=== PATIENT | female | born 1940 | race Asian ===

== ENCOUNTER 2017-06-05 12:20 | Inpatient (IN) | payer MEDICARE, OTHER ==
[~2017-06-05] VITALS: Ht 162.6 cm; Wt 49.0 kg
[2017-06-05 15:13] LABS: HEMATOCRIT. 34.7 % (36.0-48.0); HEMOGLOBIN. 11.8 g/dL (12.0-16.0); MEAN CORPUSCULAR HEMOGLOBIN 29.7 pg (28.0-32.0); MEAN CORPUSCULAR VOLUME 87.4 fL (81.0-99.0); MEAN PLATELET VOLUME 9.7 fl (7.4-10.4); PLATELET 242 x1000/uL (130-400); RED BLOOD CELL COUNT 3.97 mill/uL (4.2-5.4); RED CELL DISTRIBUTION WIDTH 13.3 % (11.6-14.6)
[2017-06-05 15:17] LABS: CHLORIDE 99 mEq/L (98-107)
[2017-06-05 15:20] LABS: CARBON DIOXIDE 14 mEq/L (21-32)
[2017-06-05 15:25] LABS: ETHANOL BLOOD < 10 mg/dL
[2017-06-05 15:51] LABS: PLATELET ESTIMATE NORMAL
[2017-06-05 16:11] LABS: CLARITY URINE CLEAR (CLEAR); COLOR URINE YELLOW (YELLOW); GLUCOSE URINE 3+ (NEGATIVE); KETONES URINE 3+ (NEGATIVE); LEUKOCYTE ESTERASE URINE NEGATIVE (NEGATIVE); NITRITE URINE NEGATIVE (NEGATIVE); OCCULT BLOOD URINE 2+ (NEGATIVE); PROTEIN URINE 2+ (NEGATIVE); SPECIFIC GRAVITY URINE 1.019 (1.005-1.030); UROBILINOGEN URINE 0.2 E.U./dL (0.2-1.0)
[2017-06-05] MEDS ORDERED: AMLODIPINE 5MG TABLET PO ONE (16:15)
[2017-06-05] MEDS ORDERED: CLONIDINE 0.1MG TABLET PO ONE (16:15)
[2017-06-05 16:24] LABS: *AMPHETAMINES SCREEN URINE NEGATIVE (NEGATIVE); *BARBITURATES SCREEN URINE NEGATIVE (NEGATIVE); *BENZODIAZEPINES SCREEN URINE NEGATIVE (NEGATIVE); *COCAINE SCREEN URINE NEGATIVE (NEGATIVE); CANNABINOID URINE SCREEN NEGATIVE (NEGATIVE); METHADONE URINE SCREEN NEGATIVE (NEGATIVE); OPIATES URINE SCREEN NEGATIVE (NEGATIVE); PHENCYCLIDINE URINE SCREEN NEGATIVE (NEGATIVE)
[2017-06-05] MEDS ORDERED: HYDRALAZINE 20MG/ML VIAL IV ONE (16:45)
[2017-06-05] MEDS ORDERED: INSULIN REGULAR (DRIP) 100 UNITS in SODIUM CHLORIDE 0.9% 100 ML IV ONE (17:00)
[2017-06-05] MEDS ORDERED: LEVOFLOXACIN 500MG PREMIX 100 ML IV ONE (17:00)
[2017-06-05] MEDS ORDERED: INSULIN REGULAR (DRIP) 100 UNITS in SODIUM CHLORIDE 0.9% 100 ML IV SCH (17:45)
[2017-06-05] MEDS ORDERED: SODIUM CHLORIDE 0.9% 1,000 ML IV ONE (19:49)
[2017-06-05] MEDS ORDERED: INSULIN REGULAR (HUMULIN R) 300UNITS/3ML SUBCUT ONE (20:00)
[2017-06-05 21:00] VITALS: BP 149/74
[2017-06-05] MEDS ORDERED: DEXTROSE 50% WATER 50ML SYRINGE IV PRN (21:45)
[2017-06-05] MEDS ORDERED: ACETAMINOPHEN 325MG TABLET PO PRN (22:00)
[2017-06-05] MEDS ORDERED: LEVOFLOXACIN 500MG PREMIX 100 ML IV NR (23:30)
[2017-06-06] VITALS: BP 177/76
[2017-06-06 04:00] VITALS: BP 183/71
[2017-06-06 06:01] LABS: HEMATOCRIT. 34.8 % (36.0-48.0); HEMOGLOBIN. 11.9 g/dL (12.0-16.0); MEAN CORPUSCULAR HEMOGLOBIN 29.4 pg (28.0-32.0); MEAN PLATELET VOLUME 9.6 fl (7.4-10.4); PLATELET 239 x1000/uL (130-400); RED BLOOD CELL COUNT 4.05 mill/uL (4.2-5.4); RED CELL DISTRIBUTION WIDTH 13.3 % (11.6-14.6)
[2017-06-06] MEDS: INSULIN LISPRO 100 UNITS/ML SUBCUT SCH ×4 (06:52→22:10)
[2017-06-06] MEDS: BLOOD SUGAR DIAGNOSTIC STRIP TEST SCH ×4 (06:53→21:58)
[2017-06-06 07:26] LABS: CARBON DIOXIDE 16 mEq/L (21-32); CHLORIDE 105 mEq/L (98-107)
[2017-06-06 08:00] VITALS: BP 167/82
[2017-06-06] MEDS ORDERED: CLONIDINE HCL 0.2MG/24HR PATCH TOP SCH (09:00)
[2017-06-06] MEDS: POTASSIUM CHLORIDE 20MEQ TABLET SR PO SCH ×2 (09:08→17:13)
[2017-06-06 09:24] LABS: PLATELET ESTIMATE NORMAL
[2017-06-06 12:00] VITALS: BP 163/82
[2017-06-06] MEDS: HYDRALAZINE 20MG/ML VIAL IV PRN (17:41)
[2017-06-06] MEDS ORDERED: VANCOMYCIN 1 G PREMIX 200 ML IV NR (18:00)
[2017-06-06] MEDS ORDERED: CEFTRIAXONE 1 G PREMIX 50 ML IV SCH ×2 (18:00)
[2017-06-06 20:00] VITALS: BP 208/76
[2017-06-06] MEDS ORDERED: CLONIDINE HCL 0.2MG/24HR PATCH TD NR (21:00)
[2017-06-06] MEDS: METRONIDAZOLE 500 MG PREMIX 100 ML IV SCH (22:08)
[2017-06-06] MEDS ORDERED: THIAMINE HCL 100 MG in SODIUM CHLORIDE 0.9% 49 ML IV NR (22:30)
[2017-06-06] MEDS ORDERED: LEVOFLOXACIN 250MG PREMIX 50 ML IV SCH (23:00)
[2017-06-07] VITALS: BP 191/79
[2017-06-07] MEDS: HYDRALAZINE 20MG/ML VIAL IV PRN ×3 (00:30→17:07)
[2017-06-07 04:00] VITALS: BP 143/57
[2017-06-07] MEDS: BLOOD SUGAR DIAGNOSTIC STRIP TEST SCH ×4 (05:37→22:06)
[2017-06-07] MEDS: INSULIN LISPRO 100 UNITS/ML SUBCUT SCH ×4 (05:58→22:14)
[2017-06-07 06:57] LABS: HEMATOCRIT. 35.5 % (36.0-48.0); HEMOGLOBIN. 12.1 g/dL (12.0-16.0); MEAN CORPUSCULAR HEMOGLOBIN 29.6 pg (28.0-32.0); MEAN CORPUSCULAR VOLUME 87.3 fL (81.0-99.0); MEAN PLATELET VOLUME 9.7 fl (7.4-10.4); PLATELET 222 x1000/uL (130-400); RED BLOOD CELL COUNT 4.07 mill/uL (4.2-5.4); RED CELL DISTRIBUTION WIDTH 13.9 % (11.6-14.6)
[2017-06-07 07:05] LABS: AMMONIA 14 uMol/L (<32)
[2017-06-07 07:15] LABS: CARBON DIOXIDE 15 mEq/L (21-32); CHLORIDE 113 mEq/L (98-107); CREATINE KINASE 416 IU/L (26-192)
[2017-06-07 08:00] VITALS: BP 152/65
[2017-06-07] MEDS: METRONIDAZOLE 500 MG PREMIX 100 ML IV SCH ×2 (09:00→20:52)
[2017-06-07] MEDS: POTASSIUM CHLORIDE 20MEQ TABLET SR PO SCH ×2 (09:00→17:06)
[2017-06-07 12:00] VITALS: BP 176/75
[2017-06-07] MEDS: VANCOMYCIN 750 MG PREMIX 150 ML IV SCH (12:20)
[2017-06-07] MEDS ORDERED: ENALAPRIL 1.25MG/ML VIAL 1ML IV PRN (12:30)
[2017-06-07] MEDS ORDERED: ENALAPRIL 1.25 MG in DEXTROSE 5% WATER 49 ML IV PRN (12:30)
[2017-06-07 16:00] VITALS: BP 180/85
[2017-06-07 16:06] LABS: AMMONIA 29 uMol/L (<32)
[2017-06-07] MEDS: CEFTRIAXONE 1 G PREMIX 50 ML IV SCH (17:06)
[2017-06-07] MEDS: CLONIDINE 0.1MG TABLET PO PRN (17:07)
[2017-06-07 17:32] LABS: PLATELET ESTIMATE NORMAL
[2017-06-07 20:00] VITALS: BP 166/71
[2017-06-08] VITALS (7 sets, daily range): BP systolic 137–182; BP diastolic 61–84
[2017-06-08] MEDS: VANCOMYCIN 750 MG PREMIX 150 ML IV SCH (06:08)
[2017-06-08] MEDS: BLOOD SUGAR DIAGNOSTIC STRIP TEST SCH ×4 (06:36→20:53)
[2017-06-08 06:37] LABS: HEMATOCRIT. 37.1 % (36.0-48.0); HEMOGLOBIN. 12.5 g/dL (12.0-16.0); MEAN CORPUSCULAR VOLUME 89.4 fL (81.0-99.0); MEAN PLATELET VOLUME 10.1 fl (7.4-10.4); PLATELET 207 x1000/uL (130-400); RED BLOOD CELL COUNT 4.15 mill/uL (4.2-5.4); RED CELL DISTRIBUTION WIDTH 14.1 % (11.6-14.6)
[2017-06-08 06:40] LABS: CARBON DIOXIDE 14 mEq/L (21-32); CHLORIDE 119 mEq/L (98-107); CREATINE KINASE MB FRACTION 3.6 ng/mL (0.5-3.6); LDL CHOLESTEROL 34 mg/dL (5-100); TROPONIN I 0.03 ng/mL (0.00-0.04)
[2017-06-08 06:43] LABS: CREATINE KINASE 138 IU/L (26-192); HDL CHOLESTEROL 59 mg/dL (40-59)
[2017-06-08 07:00] LABS: VITAMIN B12 SERUM 616 pg/mL (211-911)
[2017-06-08] MEDS: INSULIN LISPRO 100 UNITS/ML SUBCUT SCH ×4 (09:28→20:54)
[2017-06-08] MEDS: METRONIDAZOLE 500 MG PREMIX 100 ML IV SCH ×2 (09:28→20:53)
[2017-06-08] MEDS: POTASSIUM CHLORIDE 20MEQ TABLET SR PO SCH ×2 (09:29→16:33)
[2017-06-08] MEDS: CLONIDINE 0.1MG TABLET PO PRN (09:30)
[2017-06-08] MEDS: HYDRALAZINE 20MG/ML VIAL IV PRN (09:31)
[2017-06-08] MEDS ORDERED: INSULIN DETEMIR UD 100 UNITS/ML SYR SUBCUT SCH (10:00)
[2017-06-08] MEDS: METHIMAZOLE 5MG TABLET PO SCH (12:34)
[2017-06-08] MEDS: AMLODIPINE 10MG TABLET PO SCH (12:34)
[2017-06-08] MEDS: CLONIDINE 0.1MG TABLET PO SCH ×2 (16:33→20:55)
[2017-06-08 17:02] LABS: PLATELET ESTIMATE NORMAL
[2017-06-08] MEDS: CEFTRIAXONE 1 G PREMIX 50 ML IV SCH (17:59)
[2017-06-08] MEDS: INSULIN DETEMIR UD 100 UNITS/ML SYR SUBCUT SCH (20:56)
[2017-06-09] VITALS: BP 145/71
[2017-06-09 04:00] VITALS: BP 159/79
[2017-06-09] MEDS: CLONIDINE 0.1MG TABLET PO SCH ×3 (06:14→21:15)
[2017-06-09 06:16] LABS: CHLORIDE 125 mEq/L (98-107)
[2017-06-09 06:28] LABS: CARBON DIOXIDE 17 mEq/L (21-32); TROPONIN I 0.03 ng/mL (0.00-0.04)
[2017-06-09] MEDS: BLOOD SUGAR DIAGNOSTIC STRIP TEST SCH ×4 (06:44→21:15)
[2017-06-09 07:02] LABS: BASOPHILS % 0.1 % (0.0-2.0); HEMATOCRIT. 36.3 % (36.0-48.0); HEMOGLOBIN. 12.3 g/dL (12.0-16.0); LYMPHOCYTES % 7.4 % (20.0-50.0); MEAN CORPUSCULAR VOLUME 88.5 fL (81.0-99.0); MEAN PLATELET VOLUME 9.6 fl (7.4-10.4); MONOCYTES % 5.6 % (2.0-8.0); NEUTROPHILS % 86.9 % (40.0-76.0); PLATELET 223 x1000/uL (130-400); RED CELL DISTRIBUTION WIDTH 14.2 % (11.6-14.6)
[2017-06-09] MEDS: INSULIN LISPRO 100 UNITS/ML SUBCUT SCH ×4 (07:13→21:17)
[2017-06-09 08:00] VITALS: BP_SYST 159; BP_SYST 174; BP_DIAS 66; BP_DIAS 75
[2017-06-09] MEDS: METHIMAZOLE 5MG TABLET PO SCH (08:09)
[2017-06-09] MEDS: POTASSIUM CHLORIDE 20MEQ TABLET SR PO SCH ×2 (08:09→16:12)
[2017-06-09] MEDS: AMLODIPINE 10MG TABLET PO SCH (08:10)
[2017-06-09] MEDS: METRONIDAZOLE 500 MG PREMIX 100 ML IV SCH ×2 (08:11→21:16)
[2017-06-09] MEDS: INSULIN DETEMIR UD 100 UNITS/ML SYR SUBCUT SCH ×2 (10:01→21:17)
[2017-06-09] MEDS: DEXTROSE 5% WATER 1,000 ML IV SCH (10:33)
[2017-06-09 12:00] VITALS: BP 164/75
[2017-06-09] MEDS: LORAZEPAM 2MG/ML CPJ IV PRN (13:03)
[2017-06-09] MEDS ORDERED: LORAZEPAM 2MG/ML CPJ IV NR (15:45)
[2017-06-09 16:00] VITALS: BP 141/72
[2017-06-09] MEDS: CEFTRIAXONE 1 G PREMIX 50 ML IV SCH (17:42)
[2017-06-09 20:00] VITALS: BP 158/74
[2017-06-09] MEDS ORDERED: CLONIDINE HCL 0.1MG/24HR PATCH TD SCH (21:00)
[2017-06-10] VITALS (7 sets, daily range): BP systolic 120–171; BP diastolic 59–96
[2017-06-10] MEDS: DEXTROSE 5% WATER 1,000 ML IV SCH (03:54)
[2017-06-10] MEDS: CLONIDINE 0.1MG TABLET PO SCH ×3 (05:46→21:33)
[2017-06-10 05:53] LABS: BASOPHILS % 0.1 % (0.0-2.0); EOSINOPHILS % 0.1 % (0.0-5.0); HEMATOCRIT. 36.4 % (36.0-48.0); HEMOGLOBIN. 12.3 g/dL (12.0-16.0); LYMPHOCYTES % 10.1 % (20.0-50.0); MEAN CORPUSCULAR HEMOGLOBIN 29.9 pg (28.0-32.0); MEAN CORPUSCULAR VOLUME 88.5 fL (81.0-99.0); MEAN PLATELET VOLUME 9.5 fl (7.4-10.4); MONOCYTES % 7.8 % (2.0-8.0); NEUTROPHILS % 81.9 % (40.0-76.0); PLATELET 226 x1000/uL (130-400); RED BLOOD CELL COUNT 4.11 mill/uL (4.2-5.4); RED CELL DISTRIBUTION WIDTH 14.5 % (11.6-14.6)
[2017-06-10 06:36] LABS: CHLORIDE 124 mEq/L (98-107)
[2017-06-10] MEDS: BLOOD SUGAR DIAGNOSTIC STRIP TEST SCH ×4 (06:41→21:33)
[2017-06-10 06:45] LABS: CARBON DIOXIDE 21 mEq/L (21-32)
[2017-06-10] MEDS: INSULIN LISPRO 100 UNITS/ML SUBCUT SCH ×4 (07:53→21:34)
[2017-06-10] MEDS: POTASSIUM CHLORIDE 20MEQ TABLET SR PO SCH (09:00)
[2017-06-10] MEDS: METHIMAZOLE 5MG TABLET PO SCH (09:00)
[2017-06-10] MEDS: METRONIDAZOLE 500 MG PREMIX 100 ML IV SCH ×2 (09:00→20:09)
[2017-06-10] MEDS: AMLODIPINE 10MG TABLET PO SCH (09:00)
[2017-06-10] MEDS: INSULIN DETEMIR UD 100 UNITS/ML SYR SUBCUT SCH ×2 (10:00→21:35)
[2017-06-10] MEDS ORDERED: POTASSIUM CHLORIDE 20MEQ TABLET SR PO NR (11:15)
[2017-06-10] MEDS: HYDRALAZINE 20MG/ML VIAL IV PRN (12:26)
[2017-06-10] MEDS ORDERED: POTASSIUM CHLORIDE INJ 40 MEQ in DEXT 5% WATER 500 ML IV NR (13:00)
[2017-06-10] MEDS: LORAZEPAM 2MG/ML CPJ IV PRN (15:41)
[2017-06-10] MEDS: CEFTRIAXONE 1 G PREMIX 50 ML IV SCH (17:49)
[2017-06-10] MEDS: LOSARTAN POTASSIUM 25 MG TABLET PO SCH (17:49)
[2017-06-10] MEDS: SODIUM CHLORIDE 0.45% 1,000 ML IV SCH (18:59)
[2017-06-10] MEDS: ASPIRIN 81MG EC TABLET PO SCH (20:09)
[2017-06-11] VITALS (7 sets, daily range): BP systolic 85–167; BP diastolic 45–81
[2017-06-11] MEDS: CLONIDINE 0.1MG TABLET PO SCH ×3 (06:00→21:32)
[2017-06-11] MEDS: BLOOD SUGAR DIAGNOSTIC STRIP TEST SCH ×4 (06:55→21:23)
[2017-06-11 07:54] LABS: BASOPHILS % 0.1 % (0.0-2.0); EOSINOPHILS % 0.5 % (0.0-5.0); HEMATOCRIT. 33.3 % (36.0-48.0); HEMOGLOBIN. 11.2 g/dL (12.0-16.0); MEAN CORPUSCULAR HEMOGLOBIN 29.8 pg (28.0-32.0); MEAN CORPUSCULAR VOLUME 88.2 fL (81.0-99.0); MEAN PLATELET VOLUME 9.6 fl (7.4-10.4); MONOCYTES % 8.6 % (2.0-8.0); NEUTROPHILS % 75.8 % (40.0-76.0); PLATELET 211 x1000/uL (130-400); RED BLOOD CELL COUNT 3.77 mill/uL (4.2-5.4); RED CELL DISTRIBUTION WIDTH 14.1 % (11.6-14.6)
[2017-06-11] MEDS: INSULIN LISPRO 100 UNITS/ML SUBCUT SCH ×4 (08:10→21:34)
[2017-06-11 08:30] LABS: CHLORIDE 120 mEq/L (98-107)
[2017-06-11 08:57] LABS: CARBON DIOXIDE 16 mEq/L (21-32)
[2017-06-11] MEDS: LOSARTAN POTASSIUM 25 MG TABLET PO SCH ×2 (09:00→18:01)
[2017-06-11] MEDS: AMLODIPINE 10MG TABLET PO SCH (09:00)
[2017-06-11] MEDS: METRONIDAZOLE 500 MG PREMIX 100 ML IV SCH ×2 (09:09→21:32)
[2017-06-11] MEDS: POTASSIUM CHLORIDE 20MEQ TABLET SR PO SCH (09:17)
[2017-06-11] MEDS: ASPIRIN 81MG EC TABLET PO SCH (09:18)
[2017-06-11] MEDS: METHIMAZOLE 5MG TABLET PO SCH (09:18)
[2017-06-11] MEDS: INSULIN DETEMIR UD 100 UNITS/ML SYR SUBCUT SCH ×2 (10:00→21:35)
[2017-06-11] MEDS ORDERED: MAGNESIUM 2 G PREMIX 50 ML IV NR (13:00)
[2017-06-11] MEDS: SODIUM CHLORIDE 0.45% 1,000 ML IV SCH (13:17)
[2017-06-11] MEDS: CEFTRIAXONE 1 G PREMIX 50 ML IV SCH (18:36)
[2017-06-12] VITALS (7 sets, daily range): BP systolic 133–168; BP diastolic 65–89
[2017-06-12] MEDS: CLONIDINE 0.1MG TABLET PO SCH ×2 (05:17→14:34)
[2017-06-12] MEDS: SODIUM CHLORIDE 0.45% 1,000 ML IV SCH (05:17)
[2017-06-12 06:27] LABS: BASOPHILS % 0.1 % (0.0-2.0); EOSINOPHILS % 1.8 % (0.0-5.0); HEMATOCRIT. 32.7 % (36.0-48.0); HEMOGLOBIN. 11.5 g/dL (12.0-16.0); LYMPHOCYTES % 18.4 % (20.0-50.0); MEAN CORPUSCULAR HEMOGLOBIN 30.4 pg (28.0-32.0); MEAN CORPUSCULAR VOLUME 86.6 fL (81.0-99.0); MEAN PLATELET VOLUME 8.9 fl (7.4-10.4); MONOCYTES % 9.2 % (2.0-8.0); NEUTROPHILS % 70.5 % (40.0-76.0); PLATELET 224 x1000/uL (130-400); RED BLOOD CELL COUNT 3.77 mill/uL (4.2-5.4); RED CELL DISTRIBUTION WIDTH 13.7 % (11.6-14.6)
[2017-06-12] MEDS: BLOOD SUGAR DIAGNOSTIC STRIP TEST SCH ×3 (06:51→17:40)
[2017-06-12 07:46] LABS: CHLORIDE 111 mEq/L (98-107)
[2017-06-12 07:58] LABS: CARBON DIOXIDE 23 mEq/L (21-32)
[2017-06-12] MEDS: INSULIN LISPRO 100 UNITS/ML SUBCUT SCH ×3 (08:10→17:58)
[2017-06-12] MEDS: ASPIRIN 81MG EC TABLET PO SCH (08:38)
[2017-06-12] MEDS: AMLODIPINE 10MG TABLET PO SCH (08:38)
[2017-06-12] MEDS: POTASSIUM CHLORIDE 20MEQ TABLET SR PO SCH (08:39)
[2017-06-12] MEDS: LOSARTAN POTASSIUM 25 MG TABLET PO SCH ×2 (08:42→17:58)
[2017-06-12] MEDS: METRONIDAZOLE 500 MG PREMIX 100 ML IV SCH (09:19)
[2017-06-12] MEDS: INSULIN DETEMIR UD 100 UNITS/ML SYR SUBCUT SCH (10:41)
[2017-06-12] MEDS ORDERED: POTASSIUM CHLORIDE 20MEQ TABLET SR PO SCH (11:00)
[2017-06-12] MEDS: METHIMAZOLE 5MG TABLET PO SCH (14:34)
== END 2017-06-12 21:30 | DRG 871 ==
LOC: ER 12:41 → 7WST 16:55 → ENRESERV 19:26 → 7WST 21:25
PROVIDERS: ADMIT Hospitalist; ATTEND Hospitalist
DX: A41.9 Sepsis, unspecified organism (principal); G92 Toxic encephalopathy; I63.9 Cerebral infarction, unspecified; N12 Tubulo-interstitial nephritis, not specified as acute or chronic; E87.0 Hyperosmolality and hypernatremia; I47.1 Supraventricular tachycardia; S02.81XA Fracture of other specified skull and facial bones, right side, initial encounter for closed fracture; E11.65 Type 2 diabetes mellitus with hyperglycemia; H70.90 Unspecified mastoiditis, unspecified ear; E87.6 Hypokalemia; E05.90 Thyrotoxicosis, unspecified without thyrotoxic crisis or storm; E86.0 Dehydration; E87.5 Hyperkalemia; I10 Essential (primary) hypertension; R13.10 Dysphagia, unspecified; Z78.1 Physical restraint status; R56.9 Unspecified convulsions; W01.0XXA Fall on same level from slipping, tripping and stumbling without subsequent striking against object, initial encounter; Y92.009 Unspecified place in unspecified non-institutional (private) residence as the place of occurrence of the external cause; Y93.89 Activity, other specified; Y99.8 Other external cause status
CPT/HCPCS: 36415; 70450; 70551; 71010; 80048; 80053; 80061; 80305; 81001; 82140; 82550; 82553; 82607; 82962; 83036; 83605; 83690; 83735; 83880; 84439; 84443; 84481; 84484; 85025; 85379; 87040; 87086; 92610; 93005; 93306; 93880; 96372; 96374; 96375; 97162; 99285; G0482; J0360; J0696; J1815; J1956; J2060; J3370; J3411; J3475; J3480; J3490; J7030; J7040; J7050; J7060; J7070